=== PATIENT | male | born 1960 | race African-American/Black ===

== ENCOUNTER 2021-04-22 06:15 | Day surgery (SDC) | payer BC ==
[2021-04-16 13:43] VITALS: BMI 30.5
[2021-04-22] MEDS ORDERED: LOCK ITEM NR ONE (06:32)
[2021-04-22] MEDS ORDERED: PROPOFOL 20 ML ONE (07:04)
[2021-04-22] MEDS ORDERED: MIDAZOLAM HCL 2 MG/2 ML SINGLE DOSE VIAL ONE ×2 (07:05)
[2021-04-22] MEDS ORDERED: DEXAMETHASONE SOD PHOSPHATE 4 MG/1 ML VIAL ONE (08:58)
[2021-04-22] MEDS ORDERED: KETOROLAC TROMETHAMINE 30 MG/1 ML VIAL ONE (08:58)
[2021-04-22] MEDS ORDERED: ceFAZolin SODIUM 1 GM VIAL ONE (08:58)
[2021-04-22] MEDS ORDERED: ONDANSETRON 4 MG/2 ML VIAL ONE (08:58)
[2021-04-22] MEDS ORDERED: oxyCODONE HCL 5 MG TABLET PO PRN (09:35)
[2021-04-22] MEDS ORDERED: ONDANSETRON 4 MG/2 ML VIAL IVPUSH PRN (09:35)
[2021-04-22] MEDS ORDERED: ACETAMINOPHEN 1000 MG/100 ML VIAL (NON FORMULARY) IVPB ONE (09:36)
[2021-04-22] MEDS ORDERED: PATIENT'S OWN MEDICATION (NON-FORMULARY) (Alfuzosin Hcl [Uroxatral] 10 MG Tab.Er.24h) PO SCH (10:00)
[2021-04-22] MEDS ORDERED: PANTOPRAZOLE 40 MG TABLET PO SCH (10:00)
[2021-04-22] MEDS ORDERED: ASCORBIC ACID 500 MG TABLET (FP) PO SCH (10:00)
[2021-04-22 12:42] VITALS: TEMP 97.7
[2021-04-22 12:44] VITALS: BP 110/74; PULSE 65
[2021-04-22] MEDS ORDERED: TAMSULOSIN HCL 0.4 MG CAP PO SCH (18:30)
== END 2021-04-22 10:30 | disposition home or self-care (01) ==
LOC: FASU 06:15
PROVIDERS: ATTEND Orthopaedic Surgery Orthopaedic Surgery of the Spine
PROC: 0LN80ZZ Release Left Hand Tendon, Open Approach (ICD-10-PCS; principal; 2021-04-22 09:11)
DX: M65.312 Trigger thumb, left thumb (principal)
CPT/HCPCS: 94760; J0131